=== PATIENT | female | born 1980 | race Hispanic/Latino ===

== ENCOUNTER 2018-04-02 10:47 | Outpatient (CLI) | payer BC ==
--- NOTE | 2018-04-02 12:03 | RAD ---
SCOLIOSIS EXAM: HISTORY: Back pain. Scoliosis. FINDINGS: There are 12 thoracic-type vertebrae and 5 lumbar-type vertebrae. Pedicles are intact. Measured from T2 to T8, there is 17 degree rightward convex curvature. Measured from T8 to T12, ther e is 15 degree leftward convex curvature. From T12 to L4, there is 13 degree leftward convex curvatu re. IMPRESSION: S-shaped rotatory scoliotic curvature of the thoracolumbar spine, as detailed above. POS: LEANNE
== END 2018-04-02 10:48 | disposition home or self-care (01) ==
LOC: RAD 10:47
PROVIDERS: ATTEND Nurse Practitioner Family
DX: M54.9 Dorsalgia, unspecified (principal); M41.9 Scoliosis, unspecified
CPT/HCPCS: 72081

== ENCOUNTER 2018-08-19 09:27 | Outpatient (CLI) | payer OTHER | END 2018-08-19 09:28 | disposition home or self-care (01) | LOC: BICMAMMO 09:27 | PROVIDERS: ATTEND Student in an Organized Health Care Education/Training Program | DX: N63.20 Unspecified lump in the left breast, unspecified quadrant (principal); Z80.3 Family history of malignant neoplasm of breast | CPT/HCPCS: 77066; G0279 ==

== ENCOUNTER 2018-08-19 12:27 | Outpatient (CLI) | payer OTHER ==
[2018-08-19 13:48] LABS: BHCG - Serum Negative (NEGATIVE); Pregs Control Background? CLEAR/WHITE (CLR/WHITE); Pregs Control Bar Appear? YES (CONTROL BAR)
== END 2018-08-19 12:28 | disposition home or self-care (01) ==
LOC: LABBT 12:27
PROVIDERS: ATTEND Surgery
DX: Z01.812 Encounter for preprocedural laboratory examination (principal); K40.90 Unilateral inguinal hernia, without obstruction or gangrene, not specified as recurrent; K43.9 Ventral hernia without obstruction or gangrene
CPT/HCPCS: 84703

== ENCOUNTER 2018-08-21 05:54 | Day surgery (SDC) | payer OTHER ==
[2018-08-19 12:30] VITALS: BMI 26.9
[2018-08-21] MEDS ORDERED: PROPOFOL 20 ML ONE (06:21)
[2018-08-21] MEDS ORDERED: CEFAZOLIN/Water 2 GM/20 ML SYRINGE ONE (06:22)
[2018-08-21] MEDS ORDERED: Midazolam HCl 2 mg/2 ml Vial ONE (06:28)
[2018-08-21] MEDS ORDERED: Fentanyl 100 MCG/2 ML VIAL ONE ×2 (06:28→08:26)
[2018-08-21] MEDS ORDERED: Bupivacaine/Epinephrine 0.25% 30 ML VIAL ONE (06:42)
[2018-08-21] MEDS ORDERED: SUGAMMADEX SODIUM 500 MG/5 ML VIAL ONE (06:47)
[2018-08-21] MEDS ORDERED: HYDROcodone/Acetaminophen 5/325 mg Tablet ONE ×2 (09:44→09:45)
[2018-08-21] MEDS ORDERED: Ketorolac Tromethamine 30 MG/ML VIAL ONE (15:29)
[2018-08-21] MEDS ORDERED: Dexamethasone 20 MG/5 ML VIAL ONE (15:29)
[2018-08-21] MEDS ORDERED: Lidocaine 1% PF 5 ML VIAL ONE (15:29)
[2018-08-21] MEDS ORDERED: Ondansetron HCl/PF 4 MG/2 ML Vial ONE (15:29)
[2018-08-21] MEDS ORDERED: PROPOFOL 200 MG/20 ML VIAL ONE (15:29)
--- NOTE | 2018-08-24 13:53 | OP ---
DATE OF SERVICE: 08/21/2018 PREOPERATIVE DIAGNOSES: 1. Right inguinal hernia. 2. Epigastric hernia. POSTOPERATIVE DIAGNOSES: 1. Right inguinal hernia. 2. Epigastric hernia. PROCEDURES: 1. Laparoscopic da Jasmina right inguinal hernia repair with mesh, 3DMax medium. 2. Ventral hernia repair with Ventralex ST 4 cm. SURGEON: Scott Magallon M.D. ANESTHESIA: General. ESTIMATED BLOOD LOSS: Minimal. COMPLICATIONS: None. TECHNIQUE: The patient was taken to the operating room, placed supine on the table. After general a nesthetic was obtained. Mg was placed. The abdomen was shaved, prepped, and draped in a sterile fashion. Curved incision made above the umbilicus. Cautery was used to dissect down to and score th e fascia. Abdominal cavity entered bluntly using a Shu clamp. An 11 mm balloon trocar was placed and high-flow pneumoperitoneum was obtained. Left and right abdominal 8 mm robot trocars were placed under direct visualization. All ports were docked to the robot. Surgeon goes to the console. The peritoneum was opened in the right groin exposing the right inguinal preperitoneal space. There was no left inguinal hernia. The preperitoneal space was dissected down the pubic tubercle medially, ant erior superiorly, iliac crest laterally. The shelving edge of inguinal ligament was exposed all the way. Indirect hernia sac dissected away from the round ligament. High up onto the peritoneum. Medi um 3DMax mesh brought into the sterile field. The end labeled medial aspect was placed over the pubi c tubercle medially. The mesh was laid out laterally to cover the femoral indirect and direct areas. The mesh was sewn via 2-0 Vicryl to the pubic tubercle medially and to the posterior fascia lateral ly. The peritoneum was reapproximated using running 3-0 Stratafix. All port sites were infiltrated using local anesthetic. All ports were removed under camera visualization without bleeding. Pneumop eritoneum was let down. PDS was used to close the fascial defect above the umbilicus. All incisions were irrigated and closed using 4-0 Monocryl and Dermabond. Next, a transverse incision was made over the palpable hernia in the upper midline. Dissection was t aken down to the fat of the hernia which was dissected back to a fascial defect. The abdominal cavit y was entered through the defect. The edges were freshened. The hernia defect was bluntly dissected using a wet unraveled Ray-Rui. Ventralex ST small mesh brought into the sterile field, placed into this opening. Its fibers pulled up flat against the posterior abdominal wall. The tails were sewn v ia U stitch of permanent braided suture to the edges of the fascia. The tails were cut fascia. The fascia was closed loosely over the mesh. The wound was irrigated. Local anesthetic was applied. Th e wound was closed using 3-0 Vicryl, 4-0 Monocryl, and Dermabond. The patient en route to recovery i n stable condition. All instrument counts, needle counts, lap counts are correct.
== END 2018-08-21 10:47 | disposition home or self-care (01) ==
LOC: SDC 05:54
PROVIDERS: ATTEND Surgery
PROC: 0WUF0JZ Supplement Abdominal Wall with Synthetic Substitute, Open Approach (ICD-10-PCS; principal; 2018-08-21)
PROC: 0YU54JZ Supplement Right Inguinal Region with Synthetic Substitute, Percutaneous Endoscopic Approach (ICD-10-PCS; principal; 2018-08-21)
DX: K40.90 Unilateral inguinal hernia, without obstruction or gangrene, not specified as recurrent (principal); K43.9 Ventral hernia without obstruction or gangrene; G60.0 Hereditary motor and sensory neuropathy; F41.9 Anxiety disorder, unspecified; E78.00 Pure hypercholesterolemia, unspecified; Z79.899 Other long term (current) drug therapy
CPT/HCPCS: 96374; C1781; J1100; J1885; J2001; J2250; J2405; J2704; J3010

== ENCOUNTER 2018-12-04 15:09 | Outpatient (CLI) | payer OTHER ==
--- NOTE | 2018-12-04 15:40 | ULT ---
ULTRASOUND RETROPERITONEUM COMPLETE: (RENAL) HISTORY: 38-year-old female with hematuria. FINDINGS: The right kidney measures 11.5 x 4.5 x 5 cm. The left kidney measures 11.5 x 5 x 5 cm. Both kidneys have normal cortical thickness and normal cortical echogenicity. There is no hydronephrosis. Curso ry images of the urinary bladder demonstrate no gross abnormality. IMPRESSION: Normal. jn POS: T[facility]
== END 2018-12-04 15:10 | disposition home or self-care (01) ==
LOC: SCSULT 15:09
PROVIDERS: ATTEND Family Medicine
DX: R31.29 Other microscopic hematuria (principal)
CPT/HCPCS: 76770

== ENCOUNTER 2020-05-02 11:17 | Outpatient (CLI) | payer BC ==
--- NOTE | 2020-05-02 14:06 | ULT ---
RENAL ULTRASOUND: INDICATION: History of hematuria. COMPARISON: Prior exam dated 12/04/2018. FINDINGS: No focal renal lesion or hydronephrosis is demonstrated. There are bilateral ureteral jets demonstra en at the level of the bladder. The right kidney measured 11.1 x 4.7 x 5.4 cm. The left kidney herber sured 11.4 x 5.6 x 5.2 cm. Prevoid bladder volume was 149.2 cc. Postvoid bladder volume was 26.2 cc . The full micturated volume was 123 cc. IMPRESSION: No focal renal lesion or hydronephrosis. POS: BH
== END 2020-05-02 11:18 | disposition home or self-care (01) ==
LOC: SCSULT 11:17
PROVIDERS: ATTEND Family Medicine
DX: R31.29 Other microscopic hematuria (principal)
CPT/HCPCS: 76770